=== PATIENT | male | born 1990 | race African-American/Black ===

== ENCOUNTER 2022-03-18 16:12 | Emergency (ER) | payer MEDICAID ==
[~2022-03-18] VITALS: Ht 193 cm; Wt 112.5 kg
[~2022-03-18 16:12] MED LIST: CIPROFLOXACN500 MG PO; LOMOTIL2.5 MG PO; TRAMADOL HCL50 MG PO
[2022-03-18] MEDS ORDERED: NORVASC2.5 M1 PO ×2 (17:58→19:16)
[2022-03-18] MEDS ORDERED: KEFLEX500 MG PO ×2 (17:58→19:16)
[2022-03-18 18:35] LABS: ANION GAP 15 (6-22 (CALC)); BUN 12 mg/dL (9-20); BUN/CREATININE RATIO 11 (12-20 (CALC)); CARBON DIOXIDE 27 mmol/l (22-30); CHLORIDE 107 mmol/l (95-108); CREATININE 1.1 mg/dL (0.7-1.3); GFR > 60 ML/MIN (>=60 (CALC)); GFR FOR AFR.AMER. > 60 ML/MIN (>=60 (CALC)); POTASSIUM 3.7 mmol/l (3.5-5.1); SODIUM 145 mmol/l (137-146)
[2022-03-18 19:22] VITALS: BP 152/103
== END 2022-03-18 19:53 | disposition home or self-care (01) ==
LOC: ED 16:12
PROVIDERS: Nurse Practitioner
DX: L60.0 Ingrowing nail (principal); F10.20 Alcohol dependence, uncomplicated; K70.0 Alcoholic fatty liver; I10 Essential (primary) hypertension